=== PATIENT | female | born 1935 | race Hispanic/Latino ===

== ENCOUNTER → 2020-02-24 | Outpatient (CLI) | payer MEDICARE ==
--- NOTE | 2020-02-24 12:40 | Diagnostic Imaging Report ---
X-ray chest 2 views History: Cough, productive. Comparison: None Findings: Central airways unremarkable. Heart size normal. Mediastinal contours unremarkable. No pleural effusion. No pneumothorax. No definite focal lung disease. There is elevation of the right hemidiaphragm with the lower left hemidiaphragm. This could be because of the subpulmonic, phrenic or subphrenic pathology or phrenic nerve palsy. Clinical correlation is requested. Visualized skeletal structures are unremarkable. Cholecystectomy clips in the right upper quadrant. Impression: No acute cardiopulmonary disease. Elevation of the right hemidiaphragm. Correlation with history and prior chest imaging for example CT is recommended. Signed by: Jerson Singh MD on 02/24/2020 12:37 PM
== END ==
LOC: RAD 11:34
PROVIDERS: ATTEND Internal Medicine
DX: R05 Cough (principal)
CPT/HCPCS: 71046

== ENCOUNTER → 2022-05-18 | Outpatient (CLI) | payer MEDICARE | LOC: US 12:18 | PROVIDERS: ATTEND Internal Medicine | DX: D11.0 Benign neoplasm of parotid gland (principal) | CPT/HCPCS: 10005; 88112; 88172; 88173; 88300; 88305 ==